=== PATIENT | female | born 1960 | race Caucasian/White ===

== ENCOUNTER 2022-10-20 07:54 | Outpatient (CLI) | payer BC, SELFPAY ==
--- NOTE | 2022-10-20 08:21 | NM_ITS ---
WS: [id number] NUCLEAR MEDICINE PARATHYROID SCINTIGRAPHY INDICATION: Hyperparathyroidism. Hypercalcemia. TECHNIQUE: Parathyroid scintigraphy with 21.3 mCi technetium 99m sestamibi. Initial and delayed 2 hour imaging was obtained with suprasternal and chin markers. AP and oblique imaging. FINDINGS: Initial imaging demonstrates normal homogeneous salivary gland and thyroid uptake. Normal t hyroid washout on delayed imaging. No areas of radiotracer retention to indicate parathyroid adenoma on the delayed imaging. Normal thyroid washout. No other suspicious findings. NM/NM parathyroid [id number] IMPRESSION: No evidence of parathyroid adenoma.
== END 2022-10-20 07:55 | disposition home or self-care (01) ==
PROVIDERS: PCP Internal Medicine; Visit Provider Specialist
DX: E21.2 Other hyperparathyroidism (principal); E21.4 Other specified disorders of parathyroid gland
CPT/HCPCS: 78070; A9500

== ENCOUNTER 2022-12-20 09:34 | Outpatient (CLI) | payer BC, OTHER, SELFPAY ==
[2022-12-20 10:11] LABS: Ionized Calcium 1.2 mmol/L (1.1-1.4)
[2022-12-20 10:50] LABS: Calcium 9.4 mg/dL (8.5-10.5)
[2022-12-20 10:58] LABS: Parathyroid Hormone 45.4 pg/mL (15-65)
== END 2022-12-20 09:35 | disposition home or self-care (01) ==
LOC: LAB 09:40
PROVIDERS: PCP Internal Medicine; Visit Provider Internal Medicine
DX: E21.3 Hyperparathyroidism, unspecified (principal)
CPT/HCPCS: 36415; 82310; 82330; 83970

== ENCOUNTER 2023-01-28 08:17 | Outpatient (CLI) | payer OTHER, BC, SELFPAY ==
[2023-01-28 09:18] LABS: Urine Creatinine 122 mg/dL (28-217)
[2023-01-28 09:24] LABS: Calcium 8.5 mg/dL (8.5-10.5)
[2023-01-28 09:32] LABS: Parathyroid Hormone 70.2 pg/mL (15-65)
[2023-01-28 09:42] LABS: 25 Hydroxy Vitamin D 38 ng/mL (30-100); Alanine Aminotransferase 11 U/L (0-33); Alkaline Phosphatase 92 U/L (35-105); Anion Gap 13.7 (5-19); Aspartate Amino Transferase 17 U/L (0-32); Blood Urea Nitrogen 12 mg/dL (8-23); Calcium 8.5 mg/dL (8.5-10.5); Carbon Dioxide 27 mmol/L (22-29); Chloride 104 mmol/L (98-107); Globulin 2.6 g/dL (1.3-4.6); Glomerular Filtration Rate 101.6 mL/min (90-130); Glucose 83 mg/dL (65-115); Osmolality Calculated 291 mOsm/kg (285-295); Potassium 3.7 mmol/L (3.5-5.1); Sodium 141 mmol/L (136-145); Thyroid Stimulating Hormone 1.17 uIU/mL (0.27-4.20); Total Bilirubin 0.4 mg/dL (0.15-1.2); Total Protein 6.6 g/dL (6.6-8.7)
[2023-01-28 09:59] LABS: Total Volume Urine 1400 ml
[2023-01-28 10:00] LABS: Total Volume Urine 1400 ml
[2023-01-28 10:12] LABS: Free T4 Free Thyroxine 1.05 ng/dL (0.82-1.77)
[2023-01-28 10:33] LABS: Calcium 24 Hour Urine 529 mg/24hr (100-300); Urine Calcium Result 37.8 mg/dL
[2023-01-31 04:59] LABS: T3 Total 107 ng/dL (76-181)
== END 2023-01-28 08:18 | disposition home or self-care (01) ==
PROVIDERS: PCP Internal Medicine; Visit Provider Internal Medicine
DX: E21.3 Hyperparathyroidism, unspecified (principal); M81.0 Age-related osteoporosis without current pathological fracture
CPT/HCPCS: 36415; 80053; 82306; 82310; 82340; 82570; 83970; 84439; 84443; 84480

== ENCOUNTER 2023-02-17 07:17 | Outpatient (CLI) | payer OTHER, BC, SELFPAY ==
--- NOTE | 2023-02-17 08:00 | US_ITS ---
WS: [id number] ULTRASOUND THYROID FNA CLINICAL INFORMATION: thyroid nodule TECHNIQUE: Ultrasound-guided FNA FINDINGS: No suspicious RIGHT thyroid nodules. Heterogeneous LEFT thyroid nodule measuring 1.8 x 1.2 x 1.8 cm. This nodule was selected for FNA. The procedure including risks, benefits, and complications were discussed with the patient who agreed to proceed. Timeout was performed. Using sterile technique patient was prepped and draped in usual s terile fashion. After 1% lidocaine, using ultrasound guidance, a 25-gauge needle was advanced into th e LEFT thyroid nodule. 5 passes were made with active aspiration. Pathology was present for slide pre paration. No immediate complications. Patient remained in the ultrasound suite 15 minutes postprocedure with intermittent ultrasound to ens ure no hematoma. No hematoma 15 minutes postprocedure. US/US biopsy/FNA thyroid 70172 IMPRESSION: 1. Uncomplicated ultrasound-guided LEFT thyroid FNA 2. Cytology is pending.
== END 2023-02-17 07:18 | disposition home or self-care (01) ==
PROVIDERS: PCP Internal Medicine; Visit Provider Internal Medicine
DX: E04.1 Nontoxic single thyroid nodule (principal)
CPT/HCPCS: 10005; 88173

== ENCOUNTER 2023-05-13 12:36 | Outpatient (CLI) | payer OTHER, BC, SELFPAY ==
[2023-05-13 13:04] LABS: Ionized Calcium 1.1 mmol/L (1.1-1.4)
[2023-05-13 13:41] LABS: Calcium 9.3 mg/dL (8.5-10.5)
== END 2023-05-13 12:37 | disposition home or self-care (01) ==
PROVIDERS: PCP Internal Medicine; Visit Provider Internal Medicine
DX: E04.1 Nontoxic single thyroid nodule (principal); E07.9 Disorder of thyroid, unspecified; E21.3 Hyperparathyroidism, unspecified; M81.0 Age-related osteoporosis without current pathological fracture
CPT/HCPCS: 36415; 82310; 82330; 83970

== ENCOUNTER 2023-05-17 07:47 | Outpatient (CLI) | payer OTHER, BC, SELFPAY ==
[2023-05-17 08:06] LABS: Total Volume Urine 1450 ml
[2023-05-17 08:20] LABS: Urine Creatinine 100 mg/dL (28-217)
[2023-05-17 08:27] LABS: Calcium 24 Hour Urine 360 mg/24hr (100-300); Urine Calcium Result 24.8 mg/dL
== END 2023-05-17 07:48 | disposition home or self-care (01) ==
PROVIDERS: PCP Internal Medicine; Visit Provider Internal Medicine
DX: E04.1 Nontoxic single thyroid nodule (principal); M81.0 Age-related osteoporosis without current pathological fracture; E21.3 Hyperparathyroidism, unspecified; E07.9 Disorder of thyroid, unspecified
CPT/HCPCS: 82340; 82570

== ENCOUNTER 2023-10-12 08:26 | Outpatient (CLI) | payer BC, OTHER, SELFPAY ==
[2023-10-12 09:29] LABS: Basophils % 0.6 %; Eosinophils # 0.3 10^3/uL (0.0-0.8); Eosinophils % 4.6 %; Hematocrit 39.8 % (36-47); Lymphocytes # 1.5 10^3/uL (0.8-4.8); Mean Corpuscular HGB Conc 33.7 g/dL (30-55); Mean Corpuscular Hemoglobin 28.3 pg (27-33); Mean Platelet Volume 10.7 fL (7.4-10.4); Monocytes # 0.6 10^3/uL (0.2-0.9); Monocytes % 9.9 %; Neutrophils % 60.7 %; Nucleated Red Blood Cells % 0 %; Platelet Count 198 10^3/cmm (157-399); Red Blood Count 4.74 10^6/uL (3.85-5.65); Red Cell Distribution Width 13.9 % (12.1-15.1); White Blood Count 6.26 10^3/uL (3.29-11.43)
[2023-10-12 09:53] LABS: Alanine Aminotransferase 14 U/L (0-33); Albumin Level 3.9 g/dL (3.5-5.2); Alkaline Phosphatase 74 U/L (35-105); Anion Gap 13.6 (5-19); Aspartate Amino Transferase 17 U/L (0-32); Blood Urea Nitrogen 19 mg/dL (8-23); Calcium 8.8 mg/dL (8.5-10.5); Carbon Dioxide 29 mmol/L (22-29); Chloride 101 mmol/L (98-107); Ferritin 26 ng/mL (15-150); Globulin 2.9 g/dL (1.3-4.6); Glomerular Filtration Rate 84.8 mL/min (90-130); Glucose 111 mg/dL (65-115); Iron 138 ug/dL (37-145); Magnesium 1.8 mg/dL (1.7-2.3); Osmolality Calculated 293 mOsm/kg (285-295); Phosphorus 3.9 mg/dL (2.5-4.5); Potassium 3.6 mmol/L (3.5-5.1); Prealbumin 19.4 mg/dL (20-40); Sodium 140 mmol/L (136-145); Total Bilirubin 0.5 mg/dL (0.15-1.2); Total Protein 6.8 g/dL (6.6-8.7)
[2023-10-12 10:05] LABS: 25 Hydroxy Vitamin D 32 ng/mL (30-100)
[2023-10-12 10:06] LABS: Parathyroid Hormone 19.8 pg/mL (15-65)
[2023-10-12 10:28] LABS: Vitamin B12 > 2000 pg/mL (232-1245)
[2023-10-12 10:29] LABS: Folate Level > 20.0 ng/mL (4.8-37.3)
[2023-10-14 11:39] LABS: Zinc Level, Serum or Plasma 79 mcg/dL (60-130)
[2023-10-14 19:29] LABS: Copper Level 127 mcg/dL (70-175)
[2023-10-16 17:39] LABS: Vitamin K 2040 pg/mL (130-1500)
[2023-10-16 18:59] LABS: Vitamin A (Retinol) 63 mcg/dL (38-98)
[2023-10-17 12:48] LABS: Vitamin B1(Thiamin) Plas/Ser 101 nmol/L (8-30)
[2023-10-17 14:25] LABS: Beta-Gamma-Tocopherol <1.0 mg/L (<4.4)
== END 2023-10-12 08:27 | disposition home or self-care (01) ==
LOC: LAB 08:31
PROVIDERS: Absent Provider Internal Medicine; PCP Internal Medicine; Visit Provider Nurse Practitioner Adult Health
DX: K91.2 Postsurgical malabsorption, not elsewhere classified (principal); E21.5 Disorder of parathyroid gland, unspecified; E56.9 Vitamin deficiency, unspecified; E55.9 Vitamin D deficiency, unspecified; R63.4 Abnormal weight loss; K90.9 Intestinal malabsorption, unspecified
CPT/HCPCS: 36415; 80053; 82306; 82310; 82525; 82607; 82728; 82746; 83540; 83735; 83970; 84100; 84134; 84425; 84446; 84590; 84597; 84630; 85025